=== PATIENT | female | born 1975 | race Caucasian/White ===

== ENCOUNTER 2024-08-25 14:46 | Inpatient (IN) | payer OTHER ==
[2024-08-25] MEDS ORDERED: MECLIZINE HCL 25 MG TABLET (FP) ONE ×2 (15:22→15:28)
[2024-08-25] MEDS: SODIUM CHLORIDE 0.9% 500 ML INFUS.BAG IV ONE (16:00)
[2024-08-25] MEDS: MECLIZINE HCL 25 MG TABLET (FP) PO ONE (16:00)
[2024-08-25 16:03] LABS: HEMOGLOBIN 13.5 G/dL (10.7-15.3); MEAN CELL VOLUME 90.8 fl (80-96); MEAN PLT VOLUME 8.1 fl (7.5-11.1); PLATELET COUNT 222.2 10^3/uL (134-434); RBC 4.51 10^6/uL (3.60-5.2); RDW 13.8 % (11.6-15.6); WHITE BLOOD COUNT 6.2 10^3/uL (4.0-10.8)
[2024-08-25 16:18] LABS: INR 0.98 (0.83-1.09); PROTHROMBIN TIME (PATIENT) 11.2 SEC (9.7-13.0)
[2024-08-25 16:21] LABS: ACTIVATED PTT 34.8 SECONDS (25.2-36.5)
[2024-08-25 16:27] LABS: ALK PHOS 74 U/L (45-117); ANION GAP 9 mmol/L (4-13); BILIRUBIN,TOTAL 0.3 mg/dl (0.2-1); CALCIUM 9.9 mg/dl (8.5-10.1); CHLORIDE 96 mmol/L (98-107); CO2 33 mmol/L (21-32); CREATININE 0.8 mg/dl (0.6-1.3); GLUCOSE,RANDOM 174 mg/dl (74-106); POTASSIUM 3.1 mmol/L (3.5-5.1); SGOT/AST 14 U/L (15-37); SGPT/ALT 16 U/L (7-52); SODIUM 138 mmol/L (136-145); TOT PROT 7.6 g/dl (6.4-8.2)
[2024-08-25] MEDS ORDERED: METOCLOPRAMIDE HCL INJECTION 10 MG/2 ML VIAL ONE (16:40)
[2024-08-25] MEDS: METOCLOPRAMIDE HCL INJECTION 10 MG/2 ML VIAL IVPUSH ONE (16:44)
[2024-08-25 17:16] LABS: PLATELET ESTIMATE ADEQUATE
[2024-08-25 17:29] LABS: VENOUS BASE EXCESS 7.7 mmol/L (-2-2); VENOUS O2 SATURATION 53.7 % (70-80); VENOUS PCO2 54.9 mmHg (38-52); VENOUS PH 7.42 (7.310-7.410)
[2024-08-25 17:41] LABS: N-TERMINAL BNP 36.5 pg/ml (5-125)
[2024-08-25 18:29] VITALS: BMI 50.3
[2024-08-25] MEDS ORDERED: METOCLOPRAMIDE HCL INJECTION 10 MG/2 ML VIAL IVPUSH PRN (22:05)
[2024-08-25] MEDS: FLUCONAZOLE 150 MG TABLET PO ONE (22:41)
[2024-08-25] MEDS: LAMOTRIGINE 200 MG, LAMOTRIGINE 50 MG PO SCH (22:41)
[2024-08-25] MEDS: POTASSIUM CHLORIDE ORAL LIQUID 20 MEQ/15 ML PO ONE (22:42)
[2024-08-25] MEDS: ACETAMINOPHEN 325 MG TABLET (FP) PO PRN (22:42)
[2024-08-26] MEDS: INSULIN ASPART SLIDING SCALE (NOVOLOG) 1 VIAL SQ SCH (06:55)
[2024-08-26 09:01] LABS: CHOLESTEROL 146 mg/dL (50-200); HDL CHOLESTEROL 34 mg/dL (40-60); LDL CHOLESTEROL (ONLY DFH) 83 mg/dL (5-100)
[2024-08-26 09:02] LABS: CALCIUM 9.3 mg/dl (8.5-10.1); CREATININE 0.7 mg/dl (0.6-1.3); POTASSIUM 3.5 mmol/L (3.5-5.1)
[2024-08-26] MEDS: ASPIRIN 81 MG CHEWABLE TABLETS PO SCH (11:22)
[2024-08-26] MEDS: ATORVASTATIN CA 80 MG TABLET (FP) PO ONE (11:22)
[2024-08-26 11:32] LABS: HEMOGLOBIN 12.5 G/dL (10.7-15.3); MCH 30.1 pg (25.7-33.7); MCHC 32.9 g/dl (32.0-36.0); MEAN CELL VOLUME 91.3 fl (80-96); MEAN PLT VOLUME 8.2 fl (7.5-11.1); PLATELET COUNT 195.7 10^3/uL (134-434); RBC 4.16 10^6/uL (3.60-5.2); RDW 13.3 % (11.6-15.6); WHITE BLOOD COUNT 5.2 10^3/uL (4.0-10.8)
[2024-08-26] MEDS: BRIVARACETAM 100 MG PO SCH (11:42)
[2024-08-26 13:29] LABS: PLATELET ESTIMATE ADEQUATE
[2024-08-26] MEDS: FLUTICASONE PROP 0.05% 16 GM NASAL SPRAY NS SCH (15:23)
[2024-08-26 17:47] LABS: MAGNESIUM 2.3 mg/dL (1.8-2.4)
[2024-08-26] MEDS: LORATADINE 10 MG TABLET PO SCH (17:57)
[2024-08-26] MEDS: CEFTRIAXONE 1 GM in DEXTROSE 5%-WATER - 50 ML IVPB SCH (17:58)
[2024-08-26] MEDS: AZITHROMYCIN IVPB 500 MG/250 ML BAG IVPB SCH (17:58)
[2024-08-26] MEDS: MAGNESIUM OXIDE 400 MG TABLET (FP) PO SCH (21:32)
[2024-08-27 08:44] LABS: ALBUMIN 4.6 g/dl (3.4-5.0); BILIRUBIN,TOTAL 0.3 mg/dl (0.2-1); CALCIUM 9.3 mg/dl (8.5-10.1); CREATININE 0.6 mg/dl (0.6-1.3); POTASSIUM 3.2 mmol/L (3.5-5.1); TOT PROT 6.8 g/dl (6.4-8.2)
[2024-08-27 09:20] LABS: HEMATOCRIT 39.7 % (32.4-45.2); HEMOGLOBIN 13.1 G/dL (10.7-15.3); MCHC 32.9 g/dl (32.0-36.0); MEAN CELL VOLUME 91.2 fl (80-96); MEAN PLT VOLUME 7.9 fl (7.5-11.1); PLATELET COUNT 207.4 10^3/uL (134-434); RBC 4.35 10^6/uL (3.60-5.2); RDW 13.5 % (11.6-15.6); WHITE BLOOD COUNT 6.2 10^3/uL (4.0-10.8)
[2024-08-27 09:46] VITALS: TEMP 98.4
[2024-08-27] MEDS: POTASSIUM CHLORIDE ORAL LIQUID 20 MEQ/15 ML PO ONE (11:08)
[2024-08-27 11:47] LABS: PLATELET ESTIMATE ADEQUATE
[2024-08-27 15:24] VITALS: BP 121/98; PULSE 98; RESP 18
== END 2024-08-27 15:36 | disposition home or self-care (01) | DRG 111 ==
LOC: FER 14:46 → FM/S 17:15
PROVIDERS: ADMIT Internal Medicine
DX: H81.10 Benign paroxysmal vertigo, unspecified ear (principal); E11.65 Type 2 diabetes mellitus with hyperglycemia; G40.909 Epilepsy, unspecified, not intractable, without status epilepticus; Z79.84 Long term (current) use of oral hypoglycemic drugs; R91.8 Other nonspecific abnormal finding of lung field; R91.1 Solitary pulmonary nodule; G43.909 Migraine, unspecified, not intractable, without status migrainosus
CPT/HCPCS: 0241U-QW; 36415; 70450-TC; 70496-TC; 70498-TC; 71250-TC; 80048; 80053; 80061; 80175; 81003; 81015; 82803; 82962; 83036; 83735; 83880; 84443; 84484; 85025; 85027; 85610; 85730; 87086; 87109; 87899; 93005; 99285-25